=== PATIENT | male | born 1975 | race African-American/Black ===

== ENCOUNTER 2019-08-18 17:10 | Emergency (ER) | payer OTHER ==
[~2019-08-18] VITALS: Ht 177.8 cm; Wt 71.8 kg
--- NOTE | 2019-08-18 17:29 | RAD ---
PQRS Compliance statement: One or more of the following individualized dose reduction techniques were utilized for this examination: 1. Automated exposure control. 2. Adjustment of the mA and/or kV according to patient size. 3. Use of iterative reconstruction technique. INDICATION: Code stroke TECHNIQUE: CT of the head without IV contrast COMPARISON: None FINDINGS: Small area of encephalomalacia is seen in the left frontal lobe. Small area of encephalomalacia is seen in the superior aspect of the left cerebellar hemisphere. No pathologic extra-axial or intra-axial fluid collection. No acute intracranial bleed. The ventricles and basal cisterns are within normal limits. Orbits are within normal limits. No suspicious calvarial lesion. Visualized paranasal sinuses and mastoid air cells are clear. 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 If concern for acute ischemic stroke is high, please consider MRI brain. No acute intracranial bleed. Critical findings were identified on 08/18/2019 5:23 PM, read back and verified with Dr. Kirk on 08/18/2019 5:[address] Darrell Zarate DO. Electronically signed by: Darrell Zarate DO (08/18/2019 5:26 PM) [facility]
[2019-08-18 17:33] LABS: BASO % 1 % (0-3); EOS # 0.1 x10^3/uL (0.0-0.7); EOS % 3 % (0-3); HEMATOCRIT 31.8 % (39.0-53.0); HEMOGLOBIN 10.7 g/dL (13.0-17.5); LYMPH # 0.9 x10^3/uL (1.0-4.8); LYMPH % 27 % (24-48); MEAN CORPUSCULAR HEMOGLOBIN 27 pg (25-35); MEAN CORPUSCULAR HGB CONC 34 g/dL (31-37); MEAN CORPUSCULAR VOLUME 82 fL (79-100); MONO # 0.3 x10^3/uL (0.0-1.1); MONO % 8 % (0-9); NEUT % 61 % (31-73); PLATELET COUNT 87 x10^3/uL (140-400); RED BLOOD COUNT 3.91 x10^6/uL (4.30-5.70); WHITE BLOOD COUNT 3.2 x10^3/uL (4.0-11.0)
[2019-08-18 17:41] LABS: CALCIUM 8.9 mg/dL (8.5-10.1); CREATININE 1.4 mg/dL (0.7-1.3); GFR 55.3; POTASSIUM 3.6 mmol/L (3.5-5.1)
[2019-08-18 17:43] LABS: PROTHROMBIN TIME PATIENT 13.1 SEC (11.7-14.0)
--- NOTE | 2019-08-18 17:43 | PHYS DOC ---
Adult General Chief Complaint Chief Complaint: NEURO SYMPTOMS/DEFICITS HPI HPI is a 44-year-old male who presents with report of acute onset of right sided facial droop and slurred speech that started at approximately 4:10 PM. Patient's coworkers had noticed the slurred speech and a facial droop while patient was at work and they called EMS. EMS reports that it took approximately 30 minutes to finally convince patient to come into the emergency room. Patient does have history of stroke in the past. Patient denies any chest pain or shortness of breath. He denies any lateralizing weakness. Patient states that he is fine at that there is nothing wrong with him. Patient does have difficulty with communication however.[] (STEPHON THAPA Jr. DO) Review of Systems Review of Systems Constitutional: Denies fever or chills [] Respiratory: Denies cough or shortness of breath [] Cardiovascular: No additional information not addressed in HPI [] GI: Denies abdominal pain, nausea, vomiting or diarrhea [] Integument: Denies rash or skin lesions [] Neurologic: Denies headache. Positive right sided facial droop and slurred speech. [] All other systems were reviewed and found to be within normal limits, except as documented in this note. (STEPHON THAPA Jr. DO) Current Medications Current Medications Current Medications Medications (Trade) Dose Ordered Sig/Amado Start Time Stop Time Status Last Admin Dose Admin Aspirin (Dharmesh Aspirin) 325 mg 1X ONCE 08/18/19 17:45 08/18/19 17:46 DC Aspirin (Children'S Aspirin) 162 mg 1X ONCE 08/18/19 18:00 08/18/19 18:05 DC Dextrose (Dextrose 50%-Water Syringe) 25 gm 1X ONCE 08/18/19 19:15 08/18/19 19:16 DC 08/18/19 19:03 25 GM Info (CONTRAST GIVEN -- Rx MONITORING) 1 each PRN DAILY PRN 08/18/19 18:00 08/20/19 17:59 Iohexol (Omnipaque 350 Mg/ml) 60 ml 1X ONCE 08/18/19 18:00 08/18/19 18:01 DC (MARGI STAHL MD) Allergies Allergies Allergies Coded Allergies Type Severity Reaction Last Updated Verified codeine Allergy Unknown 08/18/19 Yes (MARGI STAHL MD) Physical Exam Physical Exam Constitutional: Well developed, well nourished, no acute distress, non-toxic appearance. [] HENT: Normocephalic, atraumatic, bilateral external ears normal, oropharynx moist, no oral exudates, nose normal. [] Eyes: PERRLA, EOMI, conjunctiva normal, no discharge. [] Neck: Normal range of motion, no tenderness, supple, no stridor. [] Cardiovascular: Regular rate and rhythm[] Lungs & Thorax: Bilateral breath sounds clear to auscultation [] Abdomen: Bowel sounds normal, soft, no tenderness. [] Skin: Warm, dry, no erythema, no rash. [] Extremities: No tenderness, no cyanosis, no clubbing, ROM intact. [] Neurologic: Alert and oriented X 3, there is a right sided facial droop with involvement of the forehead and severely dysarthric speech. Motor and sensory for upper and lower extremities is normal. [] (STEPHON THAPA Jr. DO) Current Patient Data Vital Signs Vital Signs Date Time Temp Pulse Resp B/P (MAP) Pulse Ox O2 Delivery O2 Flow Rate FiO2 08/18/19 17:10 98.4 76 16 169/104 (125) 98 Room Air 98.4 (MARGI STAHL MD) Lab Values Laboratory Tests Test 08/18/19 17:18 08/18/19 17:25 08/18/19 18:03 08/18/19 19:00 Glucose (Fingerstick) 62 mg/dL (70-99) L 120 mg/dL (70-99) H White Blood Count 3.2 x10^3/uL (4.0-11.0) L Red Blood Count 3.91 x10^6/uL (4.30-5.70) L Hemoglobin 10.7 g/dL (13.0-17.5) L Hematocrit 31.8 % (39.0-53.0) L Mean Corpuscular Volume 82 fL (79-100) Mean Corpuscular Hemoglobin 27 pg (25-35) Mean Corpuscular Hemoglobin Concent 34 g/dL (31-37) Red Cell Distribution Width 14.0 % (11.5-14.5) Platelet Count 87 x10^3/uL (140-400) L Neutrophils (%) (Auto) 61 % (31-73) Lymphocytes (%) (Auto) 27 % (24-48) Monocytes (%) (Auto) 8 % (0-9) Eosinophils (%) (Auto) 3 % (0-3) Basophils (%) (Auto) 1 % (0-3) Neutrophils # (Auto) 2.0 x10^3/uL (1.8-7.7) Lymphocytes # (Auto) 0.9 x10^3/uL (1.0-4.8) L Monocytes # (Auto) 0.3 x10^3/uL (0.0-1.1) Eosinophils # (Auto) 0.1 x10^3/uL (0.0-0.7) Basophils # (Auto) 0.0 x10^3/uL (0.0-0.2) Platelet Estimate Decreased (ADEQUATE) Poikilocytosis Slight Ovalocytes Occ Acanthocytes (Spur Cells) Occ Schistocytes Occ Prothrombin Time 13.1 SEC (11.7-14.0) Prothrombin Time INR 1.0 (0.8-1.1) Activated Partial Thromboplast Time 41 SEC (24-38) H Sodium Level 140 mmol/L (136-145) Potassium Level 3.6 mmol/L (3.5-5.1) Chloride Level 103 mmol/L (98-107) Carbon Dioxide Level 30 mmol/L (21-32) Anion Gap 7 (6-14) Blood Urea Nitrogen 8 mg/dL (8-26) Creatinine 1.4 mg/dL (0.7-1.3) H Estimated GFR (Cockcroft-Gault) 55.3 BUN/Creatinine Ratio 6 (6-20) Glucose Level 84 mg/dL (70-99) Calcium Level 8.9 mg/dL (8.5-10.1) Magnesium Level 1.8 mg/dL (1.8-2.4) Total Bilirubin 0.2 mg/dL (0.2-1.0) Aspartate Amino Transferase (AST) 19 U/L (15-37) Alanine Aminotransferase (ALT) 12 U/L (16-63) L Alkaline Phosphatase 56 U/L (46-116) Total Protein 7.4 g/dL (6.4-8.2) Albumin 3.0 g/dL (3.4-5.0) L Albumin/Globulin Ratio 0.7 (1.0-1.7) L Ethyl Alcohol Level < 10 mg/dL (0-10) Urine Collection Type Void Urine Color Yellow Urine Clarity Clear Urine pH 7.0 Urine Specific [place] 1.010 Urine Protein 100 mg/dL (NEG-TRACE) Urine Glucose (UA) Negative mg/dL (NEG) Urine Ketones (Stick) Negative mg/dL (NEG) Urine Blood Negative (NEG) Urine Nitrite Negative (NEG) Urine Bilirubin Negative (NEG) Urine Urobilinogen Dipstick 0.2 mg/dL (0.2 mg/dL) Urine Leukocyte Esterase Negative (NEG) Urine RBC Rare /HPF (0-2) Urine WBC Occ /HPF (0-4) Urine Squamous Epithelial Cells Occ /LPF Urine Bacteria 0 /HPF (0-FEW) Urine Opiates Screen Neg (NEG) Urine Methadone Screen Neg (NEG) Urine Barbiturates Neg (NEG) Urine Phencyclidine Screen Neg (NEG) Urine Amphetamine/Methamphetamine Neg (NEG) Urine Benzodiazepines Screen Neg (NEG) Urine Cocaine Screen Neg (NEG) Urine Cannabinoids Screen Neg (NEG) Urine Ethyl Alcohol Neg (NEG) Laboratory Tests 08/18/19 17:25 Laboratory Tests 08/18/19 17:25 (MARGI STAHL MD) EKG EKG EKG demonstrates normal sinus rhythm with rate of 82.[] (STEPHON THAPA Jr., DO) Radiology/Procedures Radiology/Procedures [] (STEPHON THAPA Jr., DO) Radiology/Procedures [facility] [address] [place] [address] IMAGING REPORT Signed PATIENT: CHARLES GIL ACCOUNT: [id number] : 1975 LOCATION: ER AGE: 44 SEX: M EXAM STATUS: PRE ER ORD. PHYSICIAN: STEPHON THAPA Jr., DO REASON: possible CVA PROCEDURE: CT ANGIOGRAPHY HEAD AND NECK STUDY: CT angiography of the head and neck INDICATION: Possible CVA. COMPARISON: No prior angiographic evaluation is available for review. TECHNIQUE: Axial CT imaging of the head and neck utilizing angiography protocol and performed after the intravenous administration of 60 cc Omnipaque 300 contrast. Multiplanar reformats and 3D MIP acquisitions were obtained. Encountered areas of stenosis are measured per NASCET criteria. One or more of the following individualized dose reduction techniques were utilized for this examination: 1. Automated exposure control 2. Adjustment of the mA and/or kV according to patient size 3. Use of iterative reconstruction technique. FINDINGS: CTA NECK: Three vessel arch with patent origins. Patent bilateral common and extracranial internal carotid arteries. Patent vertebral artery origins. The left extracranial vertebral artery is dominant. No dissection or flow limiting stenosis is identified noting venous contamination approaching the skull base. CTA HEAD: Degraded evaluation of the intracranial vessels due to bolus timing with resultant venous contamination. The peripheral segments of the intracranial arteries are incompletely evaluated. No branch vessel occlusion is seen to involve the adequately evaluated segments of the anterior, middle or posterior cerebral arteries. The left intracranial vertebral artery is dominant but both vertebral arteries contribute to basilar flow. The basilar artery is patent. No discrete aneurysm is seen. Mild calcific atherosclerosis at the carotid siphons. Dominance of the right transverse sinus. Patent dural sinuses. No evidence for occlusion of the major intracerebral veins. MISCELLANEOUS: Small right upper lobe nodule approaching the pleura on image 35 series 4 measuring 3 mm. Scattered missing teeth, dental caries and periapical lucencies. Bilateral maxillary sinus mucosal thickening and retention cysts. Trace sphenoid sinus mucosal thickening. IMPRESSION: 1. Widely patent extracranial carotid and vertebral arteries. 2. Degraded intracranial portion of the study due to bolus timing with resultant venous contamination. The cerebral artery segments distal to the V2 segments are not well evaluated. No flow-limiting stenosis or branch vessel occlusion of the central cerebral arteries or the intracranial vertebral and internal carotid arteries. If there is ongoing concern for an acute ischemic event, MRI would again be beneficial. Electronically signed by: AUDRA GARDNER MD (08/18/2019 6:45 PM) [place] [id number] DICTATED and SIGNED BY: AUDRA GARDNER MD DATE: 08/18/191844 (MARGI STAHL MD) Course & Med Decision Making Course & Med Decision Making Pertinent Labs and Imaging studies reviewed. (See chart for details) [] (STEPHON THAPA Jr. DO) Course & Med Decision Making Assumed care of patient at 1800. Examination of patient see NIH scale (4). Patient with hypoglycemia on electrolyte panel, 62, 1 amp D50 provided. Further discussion with the patient, he states his slurred speech started around 2 PM. Apparently EMS spent approximately 30 minutes or so prior to their arrival to the hospital convincing the patient that he needed to be transported. Patient does have inability to wrinkle his forehead on the right side consistent with Vargas's Palsy however does have RUE weakness on exam. Given concern of CVA as well with RUE weakness and NIHSS of 4. Patient at the time of my evaluation is out of the window for tPA administration given onset around 2pm per patient. CTA head/neck negative for acute process. Discussed findings with patient. Recommend admission to the hospital for further eval, MRI, and neurology consultation however patient declines and states that he cannot stay. Discussed with patient he will need to sign AMA form given need for admission. (MARGI STAHL MD) Dragon Disclaimer Dragon Disclaimer This electronic medical record was generated, in whole or in part, using a voice recognition dictation system. (STEPHON THAPA Jr. DO) NIHSS Stroke Scale NIH Stroke Scale: NIH Stroke Scale Response (Comments) Value Level of Consciousness: 0 Alert/Responsive 0 LOC Questions: 0 Answers both correctly 0 LOC Commands: 0 Performs both tasks 0 Best Gaze: 0 Normal 0 Visual: 0 No visual loss 0 Facial Palsy: 2 Partial paralysis 2 Motor - Left Arm 0 No drift 0 Motor - Right Arm 0 No drift 0 Motor - Left Leg 0 No drift 0 Motor: Right Leg 0 No drift 0 Limb Ataxia: 1 One limb 1 Sensory: 0 No loss 0 Best Language: 0 Normal 0 Dysathria: 1 Mild to moderate 1 Extinction and Inattention: 0 Normal 0 Total 4 Departure Departure Impression: Primary Impression: Vargas palsy Additional Impressions: Hypoglycemia Dysarthria Disposition: 07 AGAINST MEDICAL ADVICE Condition: STABLE Patient Instructions: Vargas's Palsy-Brief, Hypoglycemia, [id number], Stroke Prevention, [id number] Additional Instructions: Recommend follow up with PCP 3 - 5 days Return to the ER with worsening symptoms, intractable pain, fever, altered mental status Tylenol/Motrin as needed for pain At this time given symptoms and concern for underlying CVA would like to admit however patient declines, AMA form provided for patient to sign Problem Qualifiers STEPHON THAPA Jr., DO Aug 18, 2019 17:43 MARGI STAHL MD Aug 18, 2019 18:43
[2019-08-18] MEDS ORDERED: ASPIRIN 325 MG TABLET PO ONE (17:45)
[2019-08-18 17:47] LABS: ALBUMIN/GLOBULIN RATIO 0.7 (1.0-1.7); MAGNESIUM 1.8 mg/dL (1.8-2.4); TOTAL BILIRUBIN 0.2 mg/dL (0.2-1.0); TOTAL PROTEIN 7.4 g/dL (6.4-8.2)
[2019-08-18 17:56] LABS: ACANTHOCYTES OCC; OVALOCYTES OCC; PLT ESTIMATE DECREASED (ADEQUATE); POIKILOCYTOSIS SLIGHT; SCHISTOCYTES OCC
[2019-08-18] MEDS ORDERED: IOHEXOL 350 MG/ML 100 ML VIAL. IV ONE (18:00)
[2019-08-18] MEDS ORDERED: ASPIRIN CHEWABLE 81 MG TABLET. PO ONE (18:00)
[2019-08-18] MEDS ORDERED: CONTRAST GIVEN. MC PRN (18:00)
[2019-08-18 18:11] LABS: BILIRUBIN,URINE NEGATIVE (NEG); CLARITY,URINE CLEAR; COLOR,URINE YELLOW; NITRITE,URINE NEGATIVE (NEG); PROTEIN,URINE 100 mg/dL (NEG-TRACE); UROBILINOGEN,URINE 0.2 mg/dL (0.2 mg/dL)
[2019-08-18 18:15] LABS: BARBITURATES NEG (NEG); BENZODIAZEPINES NEG (NEG); CANNABINOIDS NEG (NEG); COCAINE NEG (NEG); METHADONE NEG (NEG); OPIATES NEG (NEG); PHENCYCLIDINE NEG (NEG)
[2019-08-18 18:18] LABS: BACTERIA,URINE 0 /HPF (0-FEW); RBC,URINE RARE /HPF (0-2); SQUAMOUS EPITHELIAL CELL,UR OCC /LPF; WBC,URINE OCC /HPF (0-4)
[2019-08-18 18:19] LABS: AMPHETAMINE/METHAMPHETAMINE NEG (NEG)
[2019-08-18] MEDS ORDERED: DEXTROSE 50% 25 GM / 50ML DISP.SYRIN. IV ONE ×2 (18:33→19:15)
--- NOTE | 2019-08-18 18:48 | RAD ---
STUDY: CT angiography of the head and neck INDICATION: Possible CVA. COMPARISON: No prior angiographic evaluation is available for review. TECHNIQUE: Axial CT imaging of the head and neck utilizing angiography protocol and performed after the intravenous administration of 60 cc Omnipaque 300 contrast. Multiplanar reformats and 3D MIP acquisitions were obtained. Encountered areas of stenosis are measured per NASCET criteria. One or more of the following individualized dose reduction techniques were utilized for this examination: 1. Automated exposure control 2. Adjustment of the mA and/or kV according to patient size 3. Use of iterative reconstruction technique. FINDINGS: CTA NECK: Three vessel arch with patent origins. Patent bilateral common and extracranial internal carotid arteries. Patent vertebral artery origins. The left extracranial vertebral artery is dominant. No dissection or flow limiting stenosis is identified noting venous contamination approaching the skull base. CTA HEAD: Degraded evaluation of the intracranial vessels due to bolus timing with resultant venous contamination. The peripheral segments of the intracranial arteries are incompletely evaluated. No branch vessel occlusion is seen to involve the adequately evaluated segments of the anterior, middle or posterior cerebral arteries. The left intracranial vertebral artery is dominant but both vertebral arteries contribute to basilar flow. The basilar artery is patent. No discrete aneurysm is seen. Mild calcific atherosclerosis at the carotid siphons. Dominance of the right transverse sinus. Patent dural sinuses. No evidence for occlusion of the major intracerebral veins. MISCELLANEOUS: Small right upper lobe nodule approaching the pleura on image 35 series 4 measuring 3 mm. Scattered missing teeth, dental caries and periapical lucencies. Bilateral maxillary sinus mucosal thickening and retention cysts. Trace sphenoid sinus mucosal thickening. IMPRESSION: 1. Widely patent extracranial carotid and vertebral arteries. 2. Degraded intracranial portion of the study due to bolus timing with resultant venous contamination. The cerebral artery segments distal to the V2 segments are not well evaluated. No flow-limiting stenosis or branch vessel occlusion of the central cerebral arteries or the intracranial vertebral and internal carotid arteries. If there is ongoing concern for an acute ischemic event, MRI would again be beneficial. Electronically signed by: AUDRA GARDNER MD (08/18/2019 6:45 PM) [id number]
[2019-08-18 19:35] VITALS: BP 148/94
--- NOTE | 2019-08-19 10:10 | EKG ---
[facility] [address] [place] [address] Test Date: 2019-08-18 Test Time: 17:23:02 Pat Name: CHARLES GIL Department: Room: Gender: M [employer]: : 1975 Requested By: STEPHON THAPA Order Number: [id number] Reading MD: Measurements Intervals [place] Rate: 82 P: 57 FL: 144 QRS: 49 QRSD: 72 T: 41 QT: 356 QTc: 419 Interpretive Statements SINUS RHYTHM INCOMPLETE RIGHT BUNDLE BRANCH BLOCK OTHERWISE NORMAL ECG RI6.01 No previous ECG available for comparison
== END 2019-08-18 19:40 | disposition left against medical advice (07) ==
LOC: ER 17:10
DX: G51.0 Bell's palsy (principal); E16.2 Hypoglycemia, unspecified; R47.1 Dysarthria and anarthria; Z88.5 Allergy status to narcotic agent
CPT/HCPCS: 36415; 70450; 70496; 70498; 80053; 80307; 81001; 82962; 83735; 85025; 85610; 85730; 93005; 96374; 99285; G0480; J7042